=== PATIENT | female | born 1990 | race Caucasian/White ===

== ENCOUNTER → 2017-08-02 11:12 | Outpatient (CLI) | payer OTHER, SELFPAY ==
[2017-08-03 10:35] LABS: Progesterone Level 5.28 ng/mL (See Comment)
[2017-08-03 14:32] LABS: DHEA Sulfate 243.4 ug/dL (84.8-378.0)
== END ==
PROVIDERS: Family Provider Student in an Organized Health Care Education/Training Program; PCP Student in an Organized Health Care Education/Training Program; Visit Provider Student in an Organized Health Care Education/Training Program
DX: N92.6 Irregular menstruation, unspecified (principal)
CPT/HCPCS: 82627; 84144; 82626

== ENCOUNTER 2017-12-01 15:57 | Emergency (ER) | payer OTHER, SELFPAY ==
[2017-12-01 15:58] VITALS: BP 113/76; PULSE 67; PULSE 71; RESP 18; TEMP 36.1; O2SAT 97; BMI 34.4
== END 2017-12-01 16:32 ==
PROVIDERS: Family Provider Student in an Organized Health Care Education/Training Program; PCP Student in an Organized Health Care Education/Training Program
DX: R10.9 Unspecified abdominal pain (principal)

== ENCOUNTER → 2018-05-01 17:00 | Outpatient (CLI) | payer OTHER, SELFPAY ==
[2018-05-01 14:23] VITALS: BMI 34.4
[2018-05-05 14:47] LABS: HPV Reflexed? NOT INDICATED
== END ==
PROVIDERS: Family Provider Student in an Organized Health Care Education/Training Program; PCP Student in an Organized Health Care Education/Training Program; Referring Provider Nurse Practitioner Women's Health; Visit Provider Nurse Practitioner Women's Health
DX: Z12.4 Encounter for screening for malignant neoplasm of cervix (principal)
CPT/HCPCS: 87624; 88175; G0145

== ENCOUNTER → 2018-05-18 15:41 | Outpatient (CLI) | payer OTHER, SELFPAY ==
[2018-05-01 14:23] VITALS: BMI 34.4
[2018-05-18 17:24] LABS: Estradiol 41.1 pg/mL; Prolactin 7.6 ng/mL; Thyroid Stim Hormone (TSH) 1.83 uIU/mL (0.358-3.74)
== END ==
PROVIDERS: Family Provider Student in an Organized Health Care Education/Training Program; PCP Student in an Organized Health Care Education/Training Program; Referring Provider Nurse Practitioner Women's Health; Visit Provider Nurse Practitioner Women's Health
DX: N92.6 Irregular menstruation, unspecified (principal)
CPT/HCPCS: 36415; 82670; 84146; 84443

== ENCOUNTER → 2018-06-05 11:14 | Outpatient (CLI) | payer OTHER, SELFPAY ==
[2018-05-01 14:23] VITALS: BMI 34.4
[2018-06-05 12:44] LABS: Progesterone Level 3.23 ng/mL (See Comment)
== END ==
PROVIDERS: Family Provider Student in an Organized Health Care Education/Training Program; PCP Student in an Organized Health Care Education/Training Program; Referring Provider Nurse Practitioner Women's Health; Visit Provider Nurse Practitioner Women's Health
DX: N97.0 Female infertility associated with anovulation (principal)
CPT/HCPCS: 36415; 84144

== ENCOUNTER → 2018-09-08 07:21 | Outpatient (CLI) | payer OTHER, SELFPAY ==
[2018-05-01 14:23] VITALS: BMI 34.4
[2018-09-08 08:06] LABS: Glucose 75GTT - Fasting 98 mg/dL (70-99)
[2018-09-08 08:06] LABS: Glucose 98 mg/dL (74-106)
[2018-09-08 08:13] LABS: Insulin 54.9 mU/L (2.6-37.6)
[2018-09-08 09:06] LABS: Glucose 75GTT - 60 minutes 181 mg/dL (100-160)
[2018-09-08 09:09] LABS: Glucose 75GTT - 30 minutes 167 mg/dL (100-160)
[2018-09-08 10:20] LABS: Glucose 75GTT - 120 minutes 153 mg/dL (70-140)
== END ==
PROVIDERS: Family Provider Student in an Organized Health Care Education/Training Program; PCP Student in an Organized Health Care Education/Training Program; Referring Provider Obstetrics & Gynecology Reproductive Endocrinology; Visit Provider Obstetrics & Gynecology Reproductive Endocrinology
DX: E16.8 Other specified disorders of pancreatic internal secretion (principal)
CPT/HCPCS: 82947; 82951; 82952; 83525

== ENCOUNTER → 2019-07-17 | Outpatient (CLI) | payer OTHER, SELFPAY ==
[2019-07-17 09:13] VITALS: BMI 34.4
[2019-07-21 11:37] LABS: HPV Reflexed? NOT INDICATED
== END | disposition home or self-care (01) ==
LOC: LABSPEC 14:25
PROVIDERS: PCP Student in an Organized Health Care Education/Training Program; Referring Provider Nurse Practitioner Women's Health; Visit Provider Nurse Practitioner Women's Health
DX: Z12.4 Encounter for screening for malignant neoplasm of cervix (principal)
CPT/HCPCS: 88175; G0145

== ENCOUNTER → 2019-11-24 06:04 | Emergency (ER) ==
[2019-11-24 06:05] VITALS: BP 123/86; PULSE 89; RESP 16; TEMP 36.5; O2SAT 96; BMI 33.8
--- NOTE | 2019-11-24 06:20 | ED.DCSUM_ITS ---
History of Present Illness Chief Complaint: Nausea/Vomiting Informant: Patient - Abdominal Pain/Flank Pain Onset: Yesterday Context: Gradual Onset Timing: Waxes and wanes Quality: Aching, Cramping, Sharp Location: Diffuse - more lower abd Current Severity: Mild - pain Maximum Severity: Moderate - pain Worsened by: Nothing Relieved by: Nothing - Nausea/Vomiting/Emesis GI Symptom: Nausea, Vomiting Onset: Hours - 1-2 Quality: Nonbilious. Negative for: Blood streaks, Coffee ground, Hematemesis Severity: Severe - Diarrhea/Melena/Hematochezia GI Symptom: Negative for: Diarrhea, Melena, Hematochezia Associated Symptoms: Negative for: Dysuria, Frequency, Hematuria, Urgency LMP: 1 month - about 32 days ago; I'm due to start today, plus or minus 3 days Narrative: Healthy 29-year-old female states yesterday she felt like she was getting acid reflux type symptoms in her upper stomach and mid chest, and some nausea at times. This morning she started vomiting and having lower abdominal discomfort, and states she came to the ER because she is unable to stop vomiting at all. She denies any recent antibiotics for any reason, no history of C. difficile, no recent camping or ground water ingestion, she denies ingesting any suspicious foods or uncooked/undercooked meat, and denies any contact with anybody else that she knows of with similar symptoms. She denies any cough, congestion, shortness of breath, chest pain other than the reflux symptoms, no fevers or chills. - Past Medical History (1) PCOS (polycystic ovarian syndrome) Status: Chronic Past Medical History - Allergies and Home Meds Allergies/Adverse Reactions: Allergies No Known Allergies Allergy (Verified 11/24/19 06:10) Primary Care Physician: Heath Ontiveros DO [Primary Care Provider] - Lives: Spouse/ Significant Other Smoking Status: Never smoker Review of Systems General: Denies: Chills, Fever, Sweats Eyes: Denies: Visual changes - bilaterally, Diplopia ENT: Denies: Rhinorrhea, Sore throat Cardiovascular: Denies: Chest pain, Palpitations Respiratory: Denies: Dyspnea, Cough, Dyspnea on exertion Gastrointestinal: Reports: Abdominal pain, Nausea, Vomiting. Denies: Diarrhea, Melena, Hematochezia Genitourinary: Denies: Dysuria, Hematuria, Frequency Musculoskeletal: Denies: Myalgias, Neck pain, Back pain, Swelling, Extremity Pain Skin: Denies: Rash, Wounds Neurological: Denies: Headache, Weakness, Numbness Physical Exam Vital Signs/Narrative: Vital Signs Temp Pulse Resp BP Pulse Ox 11/24/19 06:05 97.7 F L 89 16 123/86 H 96 Inital Vital Signs reviewed: Yes General: Well nourished, Well developed, No Acute Distress - Well-appearing, conversive in full sentences, no vomiting Head: Normocephalic, Atraumatic Eyes: Perrl, EOMI ENT: Moist mucous membranes, No rhinorrhea Neck: Supple, Nontender Cardiovascular: Regular rate, Regular rhythm, No murmurs. Negative for: Tachycardia Respiratory: No distress, CTA bilaterally, Chest nontender Abdomen: Soft, Nondistended, Normal bowel sounds, No masses, Tender - Mild throughout lower abdomen, nonfocal, and epigastrium. Negative for: Guarding, Rebound tenderness Back: Nontender, Normal Inspection. Negative for: CVA tenderness Extremities: Nontender, No edema Skin: Normal color, No rash, No Trauma Neurological: Alert, Oriented x3, Cranial nerves II-XII grossly intact, Normal Strength, Normal Sensation, Normal Gait Psychological: Normal affect, Normal Mood Diagnostic/Tx/Re-eval Laboratory Results 11/24/19 11/24/19 11/24/19 06:15 06:15 07:03 WBC 10.1 RBC 4.74 Hgb 14.5 Hct 45.0 MCV 94.9 MCH 30.6 MCHC 32.2 RDW Std Deviation 45.1 H RDW Coeff of [place] 13.0 Plt Count 351 MPV 12.0 Immature Gran % (Auto) 0.300 Neut % (Auto) 69.2 Lymph % (Auto) 24.3 [place] % (Auto) 5.4 Eos % (Auto) 0.6 Baso % (Auto) 0.2 Absolute Neuts (auto) 7.0 Absolute Lymphs (auto) 2.44 Nucleated RBC % 0 Sodium 139 Potassium 3.4 L Chloride 106 Carbon Dioxide 27.0 Anion Gap 6 BUN 7 Creatinine 0.84 Estim Creat Clear Calc 100.58 Est GFR (MDRD) Af Amer 103 Est GFR (MDRD) Non-Af 85 BUN/Creatinine Ratio 8.3 L Glucose 94 Calcium 9.0 Total Bilirubin 0.60 AST 35 ALT 106 H Alkaline Phosphatase 91 Total Protein 7.9 Albumin 4.2 Globulin 3.7 Albumin/Globulin Ratio 1.1 Lipase 119 Urine Color Yellow Urine Clarity Clear Urine pH 6.0 Ur Specific [place] 1.015 Urine Protein 15 H Urine Glucose (UA) Normal Urine Ketones Negative Urine Occult Blood Negative Urine Nitrite Negative Urine Bilirubin Negative Urine Urobilinogen Normal Ur Leukocyte Esterase Negative Urine RBC 0 SEEN Urine WBC 0 SEEN Ur Squamous Epith Cells 0-5 SEEN Urine Bacteria 1+ Urine Mucus 0 SEEN Urine Test Negative - Medical Decision Making Labs were obtained and unremarkable, her potassium was 3.4 just barely low. was negative, urinalysis unremarkable, differential includes functional causes of gastritis and intestinal pain, viral infections less likely COVID-19, indigestion/acid reflux. Appendicitis also considered, I reexamined her after her initial treatment with IV fluids, Zofran, Bentyl, and a GI cocktail. She states the pain is improved, but she is still nauseated and having an occasional dry heave. On reexamination she has some mild tenderness in her lower abdomen but not the right lower quadrant. I think appendicitis is much less likely given this, and I do not think she needs an emergent CT at this time. We will give her some Reglan and if she is able to tolerate oral fluids we will send her home with a prescription for some, and instructions to follow- up with her doctor or return if worse. We discussed signs and symptoms of appendicitis, and she is comfortable with that plan. ED Disposition - Plan for ED Patient: Disposition: Home or Assisted Living Diagnosis: Acute gastritis without bleeding, Diffuse abdominal pain Instructions: ED Gastritis Prescriptions: Metoclopramide [Reglan] 10 mg PO Q6H PRN #12 tab PRN Reason: Nausea/Vomiting Prescription Printed Referrals: Heath Ontiveros DO [Primary Care Provider] - 1-2 Days if not improving (or return to the ER if worse and/or pain focusing in right lower abdomen)
[2019-11-24] MEDS: Ondansetron 4 MG/2 ML Vial IV (06:34)
[2019-11-24] MEDS: Dicyclomine 10 MG Capsule 20 MG PO (06:35)
[2019-11-24] MEDS: Mag Hydrox/Al Hydrox/Simeth 30 ML UDC PO (06:35)
[2019-11-24 06:45] LABS: Absolute Lymphocyte Count 2.44 X10^3/uL (0.83-4.51); Basophil# 0.02 X10^3/uL; Basophil% 0.2 % (0-1); Eosinophil# 0.06 X10^3/uL; Eosinophils% 0.6 % (0-5); Hemoglobin 14.5 g/dL (12.0-15.0); Lymphocyte # 2.44 X10^3/ul (4.0); Lymphocyte % 24.3 % (19-41); Mean Corp Hgb Conc 32.2 g/dL (32-36); Mean Corpuscular Hgb 30.6 pg (27.0-32.0); Mean Corpuscular Volume 94.9 fL (81-99); Monocyte# 0.54 X10^3/uL; Monocyte% 5.4 % (0-10); NRBC Flagged by Analyzer 0 % (0-5); Neutrophil # 6.97 X10^3/uL (2.7-7.7); Neutrophil % 69.2 % (47-70); Platelet Count 351 K/mm3 (150-450); RBC Distribution Width SD 45.1 fl (35.1-43.9); Red Blood Count 4.74 M/mm3 (4.2-5.4); White Blood Count 10.1 K/mm3 (4.4-11.0)
[2019-11-24 07:03] LABS: ALB/GLOB Ratio 1.1 RATIO (0.9-2.4); AST(SGOT) 35 U/L (15-37); Alanine Aminotransfer ALT/SGPT 106 U/L (13-56); Albumin, Serum 4.2 g/dL (3.2-5.0); Alkaline Phosphatase 91 U/L (45-117); Anion Gap 6 (5-15); BUN 7 mg/dL (7-18); BUN/Creat Ratio 8.3 RATIO (10-20); Chloride 106 mmol/L (98-107); Creatinine, Serum 0.84 mg/dL (0.55-1.02); EST Glomerular Filtration Rate 85 mL/min (>60); Est Glom Filt Rate - Afr Amer 103 mL/min (>60); Estimated Creatinine Clearance 100.58 ml/min; Globulin 3.7 g/dL (2.2-4.2); Glucose 94 mg/dL (74-106); Lipase 119 U/L (73-393); Potassium 3.4 mmol/L (3.5-5.1); Protein, Total 7.9 g/dL (6.4-8.2); Sodium Level 139 mmol/L (136-145)
[2019-11-24 07:10] LABS: Mucous, Urine 0 SEEN /hpf (<or=2+); Red Blood Cells-Urine 0 SEEN /hpf (0-5); White Blood Cells 0 SEEN /hpf (0-5)
[2019-11-24 07:12] LABS: Color, Urine Yellow (Yellow); Glucose, Dipstick Normal (Normal); Ketone-Dipstick Negative (Negative); Leukocyte Esterase-Dipstick Negative /ul (Negative); Nitrite-Dipstick Negative (Negative); Occult Blood-Urine Negative /ul (Negative); Protein-Dipstick 15 mg/dl (Negative); Specific Gravity, Urine 1.015 (1.002-1.030); Urine Bilirubin Dipstick Negative (Negative); Urine Clarity Clear (Clear); Urine Urobilinogen Normal (Normal)
[2019-11-24 07:19] LABS: Bacteria 1+ /hpf (None Seen); Internal QC Validated? YES +Cl - CLEAR BKGD; Pregnancy, Urine Negative Negative; Squamous Epithelial Cells - UA 0-5 SEEN /hpf (5-10)
[2019-11-24] MEDS: Metoclopramide 10 MG/2 ML Vial 5 MG IV (08:02)
== END | disposition home or self-care (01) ==
PROVIDERS: Emergency Provider Emergency Medicine; PCP Student in an Organized Health Care Education/Training Program
DX: K29.00 Acute gastritis without bleeding (principal); R10.9 Unspecified abdominal pain; E28.2 Polycystic ovarian syndrome
CPT/HCPCS: 80053; 81001; 81025; 83690; 85025; 96374; 96375; 99282; 99285; J7030; A4216; J2405

== ENCOUNTER 2019-11-27 00:11 | Emergency (ER) | payer OTHER, SELFPAY ==
[2019-11-24 06:05] VITALS: BMI 33.8
[2019-11-27 00:12] VITALS: BP 119/71; PULSE 92; RESP 16; TEMP 36.6; O2SAT 97; BMI 34.2
--- NOTE | 2019-11-27 01:11 | CT_ITS ---
STUDY: CT ABDOMEN AND PELVIS WITHOUT CONTRAST REASON FOR EXAM: Female, 29 years old. RIGHT FLANK PAIN WITH N/V RADIATION DOSAGE (If Supplied By Facility): CTDIvol = ( 15.21 ) mGy, DLP = ( 862.76 ) mGycm TECHNIQUE: Transaxial images were obtained from the dome of the diaphragm to the symphysis pubis without oral contrast, and without intravenous contrast. Sagittal and coronal images were reconstructed. Individualized dose optimization techniques were used for this CT. COMPARISON: None. FINDINGS: The visualized lung bases are unremarkable. The visualized portions of the heart are within normal limits. Normal liver. Normal gallbladder and extrahepatic biliary system. Normal spleen. Normal pancreas. Normal bilateral adrenal glands. Normal right kidney. There is a 7 mm nonobstructive left mid renal calculus. Otherwise, normal left kidney. Normal visualized stomach. Normal small intestine. Normal colon. The appendix is visualized posterior to the cecum on axial images 120-150 and it appears normal. Normal abdominal aorta. Normal inferior vena cava. Normal retroperitoneum. Normal urinary bladder. Normal abdominal wall. There is a small broad posterior disc protrusion L5-S1 level. Otherwise normal osseous structures. CT/Abdomen/Pelvis without Cont IMPRESSION: Nonobstructive left renal calculus. No demonstrated ureteral calculus or hydronephrosis. No evidence for acute pathology. No evidence for appendicitis or diverticulitis. No evidence for bowel obstruction or ileus. Electronically Signed: Guevara Marie MD at 1:53 EDT , Service support ,
[2019-11-27 01:19] LABS: Absolute Lymphocyte Count 2.72 X10^3/uL (0.83-4.51); Basophil# 0.04 X10^3/uL; Basophil% 0.3 % (0-1); Eosinophil# 0.06 X10^3/uL; Eosinophils% 0.4 % (0-5); Hematocrit 46.1 % (37-47); Lymphocyte # 2.72 X10^3/ul (4.0); Lymphocyte % 19.9 % (19-41); Mean Corp Hgb Conc 32.5 g/dL (32-36); Mean Corpuscular Hgb 30.5 pg (27.0-32.0); Mean Corpuscular Volume 93.9 fL (81-99); Mean Platelet Vol. 12.1 fl (6.2-12.0); Monocyte# 0.84 X10^3/uL; Monocyte% 6.1 % (0-10); NRBC Flagged by Analyzer 0 % (0-5); Neutrophil # 9.99 X10^3/uL (2.7-7.7); Platelet Count 324 K/mm3 (150-450); RBC Distribution Width CV 12.9 % (11.6-14.6); RBC Distribution Width SD 44.5 fl (35.1-43.9); Red Blood Count 4.91 M/mm3 (4.2-5.4); White Blood Count 13.7 K/mm3 (4.4-11.0)
--- NOTE | 2019-11-27 01:24 | ED.VIS.GEN ---
History of Present Illness Chief Complaint: Abd Pain Narrative: Patient presents with generalized abdominal pain, she was seen here a few days ago and had an unremarkable work-up she had a virtual visit but continues to have abdominal pain with some nausea and vomiting she denies she had a negative test and then she just darted her period today. She has no flank pain. She has no fevers or chills. Past Medical History - Allergies and Home Meds Allergies/Adverse Reactions: Allergies No Known Allergies Allergy (Verified 11/27/19 00:12) Primary Care Physician: Heath Ontiveros DO [Primary Care Provider] - Past Medical History: None Smoking Status: Never smoker Review of Systems General: Reports: - - She does not feel lightheaded. Denies: Fever ENT: Denies: Sore throat Cardiovascular: Denies: Chest pain Respiratory: Denies: Dyspnea, Cough, Sputum Gastrointestinal: Reports: Abdominal pain, Nausea, Vomiting. Denies: Diarrhea, Constipation Musculoskeletal: Denies: Myalgias, Arthralgias Skin: Denies: Rash Neurological: Denies: Headache, Weakness Endocrine: Denies: Polyuria Hematologic: Denies: Easy bruising Physical Exam Vital Signs/Narrative: Vital Signs Temp Pulse Resp BP Pulse Ox 11/27/19 00:12 97.8 F 92 16 119/71 97 Head: Normocephalic, Atraumatic Eyes: Perrl ENT: - - Her mucous membranes are moist. There is no signs of dehydration Cardiovascular: Regular rate, Regular rhythm Respiratory: No distress, CTA bilaterally Abdomen: Soft, - - Patient has mostly epigastric pain, however there is some bilateral lower abdominal pain. No specific right upper quadrant pain no specific pain at McBurney's. No guarding or rebound. Negative Medley's. Back: Nontender, Normal Inspection Extremities: Nontender, No edema Skin: Normal color Neurological: Normal Strength, Normal Sensation Psychological: Normal affect Diagnostic/Tx/Re-eval - Medical Decision Making Patient has an unremarkable work-up there are signs of dehydration, she was given IV fluids and improved. She does have evidence of a slight UTI I will treat her with antibiotics otherwise she is stable for discharge. ED Disposition - Plan for ED Patient: Disposition: Home or Assisted Living Diagnosis: Abdominal pain, UTI (urinary tract infection), Dehydration Instructions: ED Acute Pain UKO, ED CYSTITIS Female Adult, ED Dehydration Adult Prescriptions: Smz/Tmp Ds [Bactrim Ds] 1 tab PO BID #6 tab Transmission Status: Pending to [id number] Hydrocodone Bitart/Apap 5-325 [[place] 5MG-325MG] 1 tablet PO Q4H PRN PRN 2 Days #10 tablet PRN Reason: Pain Transmission Status: Received by [id number] Ondansetron [Zofran Odt] 4 mg PO Q8H PRN PRN #10 tab PRN Reason: Nausea Transmission Status: Pending to [id number] Referrals: Heath Ontiveros DO [Primary Care Provider] - 2 Days
[2019-11-27] MEDS: Morphine 4 MG/ML Syringe IV (01:25)
[2019-11-27] MEDS: Ondansetron 4 MG/2 ML Vial IV (01:26)
[2019-11-27 01:31] LABS: ALB/GLOB Ratio 1.1 RATIO (0.9-2.4); AST(SGOT) 38 U/L (15-37); Alanine Aminotransfer ALT/SGPT 79 U/L (13-56); Albumin, Serum 4.1 g/dL (3.2-5.0); Alkaline Phosphatase 84 U/L (45-117); Anion Gap 9 (5-15); BUN 8 mg/dL (7-18); BUN/Creat Ratio 9.6 RATIO (10-20); Calcium,Total 9.2 mg/dL (8.5-10.1); Chloride 109 mmol/L (98-107); Creatinine, Serum 0.83 mg/dL (0.55-1.02); EST Glomerular Filtration Rate 87 mL/min (>60); Est Glom Filt Rate - Afr Amer 105 mL/min (>60); Estimated Creatinine Clearance 98.13 ml/min; Globulin 3.8 g/dL (2.2-4.2); Glucose 84 mg/dL (74-106); Lipase 123 U/L (73-393); Protein, Total 7.9 g/dL (6.4-8.2); Sodium Level 140 mmol/L (136-145)
[2019-11-27 03:03] LABS: Mucous, Urine 0 SEEN /hpf (<or=2+)
[2019-11-27 03:04] LABS: Color, Urine Yellow (Yellow); Glucose, Dipstick Normal (Normal); Leukocyte Esterase-Dipstick 500 /ul (Negative); Nitrite-Dipstick Negative (Negative); Occult Blood-Urine 250 /ul (Negative); Protein-Dipstick 30 mg/dl (Negative); Urine Bilirubin Dipstick Negative (Negative); Urine Clarity Sl. Cloudy (Clear); Urine Urobilinogen Normal (Normal)
[2019-11-27 03:09] LABS: Ketone-Dipstick 150 mg/dl (Negative)
[2019-11-27 03:12] LABS: White Blood Cells 5-10 SEEN /hpf (0-5)
[2019-11-27 03:13] LABS: Red Blood Cells-Urine > 100 SEEN /hpf (0-5); Squamous Epithelial Cells - UA 0-5 SEEN /hpf (5-10)
[2019-11-27 03:14] LABS: Bacteria 1+ /hpf (None Seen)
[2019-11-27] MEDS: Smz/Tmp Ds Tablet 1 TABLET PO (03:33)
[2019-11-27 03:40] VITALS: BP 177/72; PULSE 64; RESP 14; O2SAT 99
== END 2019-11-27 03:41 | disposition home or self-care (01) ==
PROVIDERS: Emergency Provider Emergency Medicine; PCP Student in an Organized Health Care Education/Training Program
DX: R10.84 Generalized abdominal pain (principal); N39.0 Urinary tract infection, site not specified; E86.0 Dehydration
CPT/HCPCS: 74176; 80053; 81001; 83690; 85025; 96374; 96375; 99284; J7030; A4216; J2405

== ENCOUNTER 2019-12-01 12:14 | Emergency (ER) | payer OTHER, SELFPAY ==
[2019-12-01 12:14] VITALS: BP 134/93; PULSE 89; RESP 16; TEMP 36.4; O2SAT 96; BMI 33.5
--- NOTE | 2019-12-01 12:28 | ED.DCSUM_ITS ---
History of Present Illness Chief Complaint: Nausea/Vomiting/Diarrhea Informant: Patient Onset: Days, Weeks Context: Gradual Onset Timing: Intermittent Current Severity: Mild Maximum Severity: Moderate Narrative: Patient is a 29-year-old female who presents to the emergency department with nausea and vomiting. The patient has been in the emergency department 3 times within the past week. She is initially, she had work-up including CT of abdomen pelvis. It was unremarkable. She was started on Pepcid and Reglan. She returned 2 days later with persistent nausea and vomiting. At that point, she had trace UTI. She was placed on Bactrim. She states she has finished it. Her primary care started her on Carafate. She states that she took it yesterday and had 5 bouts of emesis. She states today, she is had no vomiting, but that her mouth feels dry. She does get some cramping abdominal pain, but it has significantly improved. She does not think she is had fever. She denies any sick contacts. She denies any urinary symptoms. Prior similar symptoms: Yes Recent Illness/Hospitalization: No Past Medical History - Allergies and Home Meds Allergies/Adverse Reactions: Allergies No Known Allergies Allergy (Verified 12/01/19 12:16) Primary Care Physician: Heath Ontiveros DO [Primary Care Provider] - Prior records reviewed: Yes Past Medical History: None Surgical History: no surgical history Smoking Status: Never smoker Review of Systems General: Denies: Chills, Fever, Sweats Eyes: Denies: Visual changes - bilaterally, Diplopia ENT: Denies: Rhinorrhea, Sore throat Cardiovascular: Denies: Chest pain, Palpitations Respiratory: Denies: Dyspnea, Cough, Dyspnea on exertion Gastrointestinal: Reports: Abdominal pain, Nausea, Vomiting. Denies: Diarrhea, Melena, Hematochezia Genitourinary: Denies: Dysuria, Hematuria, Frequency Musculoskeletal: Denies: Back pain, Extremity Pain Skin: Denies: Rash, Wounds Neurological: Denies: Headache, Weakness, Numbness Physical Exam Vital Signs/Narrative: Vital Signs Temp Pulse Resp BP Pulse Ox 12/01/19 12:14 97.5 F L 89 16 134/93 H 96 Inital Vital Signs reviewed: Yes General: Well nourished, Well developed, No Acute Distress Head: Normocephalic, Atraumatic Eyes: Perrl, EOMI ENT: Moist mucous membranes, No rhinorrhea Neck: Supple, Nontender Cardiovascular: Regular rate, Regular rhythm, No murmurs Respiratory: No distress, CTA bilaterally, Chest nontender Abdomen: Soft, Nontender, Nondistended, Normal bowel sounds Back: Nontender, Normal Inspection Extremities: Nontender, No edema Skin: Normal color, No rash Neurological: Alert, Oriented x3, Cranial nerves II-XII grossly intact, Normal Strength, Normal Sensation Psychological: Normal affect, Normal Mood Diagnostic/Tx/Re-eval Abnormal Lab Results 12/01/19 12/01/19 12/01/19 12:45 12:45 12:45 WBC 8.0 RBC 5.17 Hgb 15.7 H Hct 46.9 MCV 90.7 MCH 30.4 MCHC 33.5 RDW Std Deviation 42.2 RDW Coeff of [place] 12.7 Plt Count 369 MPV 11.7 Immature Gran % (Auto) 0.300 Neut % (Auto) 65.3 Lymph % (Auto) 26.3 [place] % (Auto) 6.7 Eos % (Auto) 1.0 Baso % (Auto) 0.4 Absolute Neuts (auto) 5.2 Absolute Lymphs (auto) 2.09 Nucleated RBC % 0 Sodium 136 Potassium 3.7 Chloride 104 Carbon Dioxide 25.0 Anion Gap 7 BUN 9 Creatinine 0.98 Estim Creat Clear Calc 83.11 Est GFR (MDRD) Af Amer 86 Est GFR (MDRD) Non-Af 71 BUN/Creatinine Ratio 9.2 L Glucose 87 Calcium 9.2 Total Bilirubin 0.70 AST 46 H ALT 135 H Alkaline Phosphatase 95 Total Protein 8.0 Albumin 4.3 Globulin 3.7 Albumin/Globulin Ratio 1.2 Urine Color Yellow Urine Clarity Sl. Cloudy Urine pH 6.5 Ur Specific [place] 1.010 Urine Protein Negative Urine Glucose (UA) Normal Urine Ketones 15 H Urine Occult Blood Negative Urine Nitrite Negative Urine Bilirubin Negative Urine Urobilinogen Normal Ur Leukocyte Esterase Negative Urine RBC 0 SEEN Urine WBC 0 SEEN Ur Squamous Epith Cells 0-5 SEEN Urine Bacteria 1+ Urine Mucus 0 SEEN Urine Test Negative - Medical Decision Making Patient presents with nausea and vomiting that is slowly been improving. She states that it did get worse yesterday after she took her first dose of Carafate. She has not taken any today and her vomiting had resolved. She was feeling mildly nauseated. Metabolic work-up was pursued as the patient has had recurrent emesis and I wanted to rule out rather significant dehydration or electrolyte abnormalities. Her abdomen is soft and nontender. She is afebrile. Screening labs do show improvement of her white blood cell count. There is also almost total resolution of her urine ketones. There is no evidence of urine infection. Her bicarb is normal. On reevaluation, she is resting comfortably. At this point, I do feel the patient is safe for outpatient therapy. She does have minimal elevation of the liver functions, but again has no abdominal pain. This may just be underlying viral illness which was causing her symptoms and she is recovering. I do not suspect a dangerous process. I do feel that she is safe to continue her outpatient follow-up. Impression 1. Nausea vomiting ED Disposition - Plan for ED Patient: Instructions: ED Viral Gastroenteritis Referrals: Heath Ontiveros DO [Primary Care Provider] -
[2019-12-01] MEDS: Lactated Ringers 1,000 ML 999 ML IV (12:51)
[2019-12-01] MEDS: Ondansetron 4 MG/2 ML Vial IV (12:51)
[2019-12-01 12:58] LABS: Absolute Lymphocyte Count 2.09 X10^3/uL (0.83-4.51); Absolute Neutrophil Count 5.2 X10^3/uL (2.0-7.7); Basophil# 0.03 X10^3/uL; Basophil% 0.4 % (0-1); Eosinophil# 0.08 X10^3/uL; Hematocrit 46.9 % (37-47); Hemoglobin 15.7 g/dL (12.0-15.0); Lymphocyte # 2.09 X10^3/ul (4.0); Lymphocyte % 26.3 % (19-41); Mean Corp Hgb Conc 33.5 g/dL (32-36); Mean Corpuscular Hgb 30.4 pg (27.0-32.0); Mean Corpuscular Volume 90.7 fL (81-99); Mean Platelet Vol. 11.7 fl (6.2-12.0); Monocyte# 0.53 X10^3/uL; Monocyte% 6.7 % (0-10); NRBC Flagged by Analyzer 0 % (0-5); Neutrophil # 5.21 X10^3/uL (2.7-7.7); Neutrophil % 65.3 % (47-70); Platelet Count 369 K/mm3 (150-450); RBC Distribution Width CV 12.7 % (11.6-14.6); RBC Distribution Width SD 42.2 fl (35.1-43.9); Red Blood Count 5.17 M/mm3 (4.2-5.4)
[2019-12-01 13:06] LABS: Mucous, Urine 0 SEEN /hpf (<or=2+); Red Blood Cells-Urine 0 SEEN /hpf (0-5); White Blood Cells 0 SEEN /hpf (0-5)
[2019-12-01 13:11] LABS: Color, Urine Yellow (Yellow); Glucose, Dipstick Normal (Normal); Ketone-Dipstick 15 mg/dl (Negative); Leukocyte Esterase-Dipstick Negative /ul (Negative); Nitrite-Dipstick Negative (Negative); Occult Blood-Urine Negative /ul (Negative); Protein-Dipstick Negative (Negative); Urine Bilirubin Dipstick Negative (Negative); Urine Clarity Sl. Cloudy (Clear); Urine Urobilinogen Normal (Normal); Urine pH 6.5 (5.0 - 8.0)
[2019-12-01 13:15] LABS: ALB/GLOB Ratio 1.2 RATIO (0.9-2.4); AST(SGOT) 46 U/L (15-37); Alanine Aminotransfer ALT/SGPT 135 U/L (13-56); Albumin, Serum 4.3 g/dL (3.2-5.0); Alkaline Phosphatase 95 U/L (45-117); Anion Gap 7 (5-15); BUN 9 mg/dL (7-18); BUN/Creat Ratio 9.2 RATIO (10-20); Calcium,Total 9.2 mg/dL (8.5-10.1); Chloride 104 mmol/L (98-107); Creatinine, Serum 0.98 mg/dL (0.55-1.02); EST Glomerular Filtration Rate 71 mL/min (>60); Est Glom Filt Rate - Afr Amer 86 mL/min (>60); Estimated Creatinine Clearance 83.11 ml/min; Globulin 3.7 g/dL (2.2-4.2); Glucose 87 mg/dL (74-106); Potassium 3.7 mmol/L (3.5-5.1); Sodium Level 136 mmol/L (136-145)
[2019-12-01 13:17] LABS: Bacteria 1+ /hpf (None Seen); Squamous Epithelial Cells - UA 0-5 SEEN /hpf (5-10)
[2019-12-01 13:18] LABS: Internal QC Validated? YES +Cl - CLEAR BKGD; Pregnancy, Urine Negative Negative
== END 2019-12-01 14:07 | disposition home or self-care (01) ==
LOC: ED 13:02
PROVIDERS: Emergency Provider Emergency Medicine; PCP Student in an Organized Health Care Education/Training Program
DX: R11.2 Nausea with vomiting, unspecified (principal); R10.9 Unspecified abdominal pain
CPT/HCPCS: 80053; 81001; 81025; 85025; 96361; 96374; 99282; J7120; A4216; J2405

== ENCOUNTER → 2020-05-20 15:50 | Outpatient (CLI) | payer OTHER, SELFPAY ==
[2020-05-20 08:31] VITALS: BMI 32.4
[2020-05-20 20:02] LABS: Chlamydia Trachomatis by PCR Negative (Negative); Neisserai gonorrhoeae by PCR Negative (Negative); Probe Check PASS; Sample Adequacy Control PASS; Specimen Processing Control PASS
[2020-05-21 08:25] LABS: HIV - WCH Non-Reactive (Nonreactive); Syphilis Antibodies Non-reactive
[2020-05-22 16:09] LABS: HCV Quant. RNA PCR HCV Not Detected IU/mL (.)
[2020-05-23 13:04] LABS: HSV 1 IgG < 0.91 index (0.00-0.90); HSV 2 IgG < 0.91 index (0.00-0.90)
== END ==
PROVIDERS: PCP Student in an Organized Health Care Education/Training Program; Referring Provider Nurse Practitioner Women's Health; Visit Provider Nurse Practitioner Women's Health
DX: Z11.3 Encounter for screening for infections with a predominantly sexual mode of transmission (principal)
CPT/HCPCS: 36415; 86695; 86696; 86703; 86780; 87491; 87522; 87591

== ENCOUNTER → 2021-07-28 | Outpatient (CLI) | payer OTHER, SELFPAY ==
[2021-07-29 22:07] LABS: Chlamydia By Nucleic Acid AMP Negative (Negative)
[2021-07-30 12:43] LABS: Gonococcus By Nucleic Acid AMP Negative (Negative)
[2021-07-31 16:09] LABS: HPV APTIMA, High Risk Negative (Negative)
== END | disposition home or self-care (01) ==
PROVIDERS: PCP Student in an Organized Health Care Education/Training Program; Visit Provider Nurse Practitioner Women's Health
DX: Z12.4 Encounter for screening for malignant neoplasm of cervix (principal); Z11.3 Encounter for screening for infections with a predominantly sexual mode of transmission
CPT/HCPCS: 87491; 87591; 87624; 88175; G0145

== ENCOUNTER → 2021-10-09 | Outpatient (CLI) | payer OTHER, SELFPAY ==
--- NOTE | 2021-10-09 13:06 | RAD_ITS ---
EXAM: XR RIGHT FOOT COMPLETE, 3 OR MORE VIEWS CLINICAL INDICATION: PAIN TECHNIQUE: Frontal, lateral and oblique views of the right foot. This report was created using [facility] [facility] report generation technology. COMPARISON: None. FINDINGS: BONES/JOINTS: No acute abnormality. SOFT TISSUES: Normal. No soft tissue swelling or gas. No radiopaque foreign body. RAD/Foot min 3 Views IMPRESSION: Intact right foot. Electronically Signed: Kenny Lewis MD at 16:59 EDT ,
--- NOTE | 2021-10-09 13:06 | RAD_ITS ---
EXAM: XR LEFT FOOT COMPLETE, 3 OR MORE VIEWS CLINICAL INDICATION: PAIN TECHNIQUE: Frontal, lateral and oblique views of the left foot. This report was created using [employer] report generation technology. COMPARISON: None. FINDINGS: SOFT TISSUES: Normal. No soft tissue swelling or gas. No radiopaque foreign body. RAD/Foot min 3 Views IMPRESSION: Intact left foot. Electronically Signed: Kenny Lewis MD at 16:59 EDT ,
== END | disposition home or self-care (01) ==
LOC: MTRAD 13:03
PROVIDERS: PCP Student in an Organized Health Care Education/Training Program
DX: M79.672 Pain in left foot (principal); M79.671 Pain in right foot; M25.571 Pain in right ankle and joints of right foot; M25.572 Pain in left ankle and joints of left foot; M79.89 Other specified soft tissue disorders
CPT/HCPCS: 73630

== ENCOUNTER 2023-12-23 09:17 | Emergency (ER) | payer OTHER, SELFPAY ==
[2023-12-23 09:18] VITALS: BP 203/163; PULSE 76; RESP 15; TEMP 36.4; O2SAT 98; BMI 37.0
[2023-12-23 09:21] VITALS: BP 203/163; PULSE 82; RESP 16; TEMP 36.4; O2SAT 98
[2023-12-23 09:38] VITALS: BP 114/79
[2023-12-23 09:51] LABS: Red Blood Cells-Urine 0 SEEN /hpf (0-5)
[2023-12-23] MEDS: Metoclopramide 10 MG/2 ML Vial IV (09:56)
[2023-12-23 10:01] LABS: Color, Urine Yellow (Yellow); Glucose, Dipstick Normal (Normal); Ketone-Dipstick 15 mg/dl (Negative); Leukocyte Esterase-Dipstick 25 /ul (Negative); Nitrite-Dipstick Negative (Negative); Occult Blood-Urine 10 /ul (Negative); Protein-Dipstick Negative (Negative); Urine Bilirubin Dipstick Negative (Negative); Urine Clarity Clear (Clear); Urine Urobilinogen 1 mg/dl (Normal)
[2023-12-23 10:21] VITALS: BP 108/95; PULSE 72; RESP 16; TEMP 36.8; O2SAT 97
[2023-12-23 10:26] LABS: Bacteria 3+ /hpf (None Seen); Mucous, Urine 2+ /hpf (<or=2+); Squamous Epithelial Cells - UA 25-50 SEEN /hpf (5-10); White Blood Cells 25-50 SEEN /hpf (0-5)
[2023-12-23 10:33] LABS: Absolute Lymphocyte Count 1.98 X10^3/uL (0.83-4.51); Basophil# 0.03 X10^3/uL; Basophil% 0.4 % (0-1); Eosinophil# 0.05 X10^3/uL; Eosinophils% 0.6 % (0-5); Hematocrit 44.4 % (37-47); Hemoglobin 14.7 g/dL (12.0-15.0); Lymphocyte # 1.98 X10^3/ul (0.83-4.51); Lymphocyte % 23.5 % (19-41); Mean Corp Hgb Conc 33.1 g/dL (32-36); Mean Corpuscular Hgb 30.1 pg (27.0-32.0); Mean Corpuscular Volume 90.8 fL (81-99); Mean Platelet Vol. 11.5 fl (6.2-12.0); Monocyte# 0.36 X10^3/uL; Monocyte% 4.3 % (0-10); NRBC Flagged by Analyzer 0 % (0-5); Neutrophil # 5.97 X10^3/uL (2.7-7.7); Platelet Count 347 K/mm3 (150-450); RBC Distribution Width SD 42.3 fl (35.1-43.9); Red Blood Count 4.89 M/mm3 (4.2-5.4); White Blood Count 8.4 K/mm3 (4.4-11.0)
[2023-12-23 10:47] LABS: ALB/GLOB Ratio 1.2 RATIO (0.9-2.4); AST(SGOT) 76 U/L (15-37); Alanine Aminotransfer ALT/SGPT 140 U/L (13-56); Albumin, Serum 4.1 g/dL (3.2-5.0); Alkaline Phosphatase 112 U/L (45-117); Anion Gap 5 (5-15); BUN 9 mg/dL (7-18); BUN/Creat Ratio 10.6 RATIO (10-20); Calcium,Total 9.4 mg/dL (8.5-10.1); Chloride 107 mmol/L (98-107); Creatinine, Serum 0.85 mg/dL (0.55-1.02); EST Glomerular Filtration Rate 82 mL/min (>60); Est Glom Filt Rate - Afr Amer 99 mL/min (>60); Estimated Creatinine Clearance 119.94 ml/min; Globulin 3.4 g/dL (2.2-4.2); Glucose 101 mg/dL (74-106); Lipase 42 U/L (13-75); Potassium 3.8 mmol/L (3.5-5.1); Protein, Total 7.5 g/dL (6.4-8.2); Sodium Level 139 mmol/L (136-145)
[2023-12-23 10:59] LABS: Internal QC Validated? YES +Cl - CLEAR BKGD; Pregnancy, Urine Negative Negative
[2023-12-23 11:18] VITALS: BP 125/86; PULSE 67; RESP 18; TEMP 36.8; O2SAT 99
== END 2023-12-23 11:36 | disposition home or self-care (01) ==
PROVIDERS: Emergency Provider Surgery; PCP Student in an Organized Health Care Education/Training Program; Visit Provider Surgery
DX: R11.2 Nausea with vomiting, unspecified (principal); K21.9 Gastro-esophageal reflux disease without esophagitis
CPT/HCPCS: 80053; 81001; 81025; 83690; 85025; 87086; 87088; 96374; 99282; A4216

== ENCOUNTER 2024-01-14 09:04 | Emergency (ER) | payer OTHER, SELFPAY ==
[2024-01-14 09:05] VITALS: BP 134/92; PULSE 76; RESP 18; TEMP 36.6; O2SAT 98; BMI 35.4
--- NOTE | 2024-01-14 09:31 | EX.ED.DYSGE1 ---
HPI History of Present Illness Chief Complaint: General Illness Informant: patient Narrative Narrative: 33-year-old female presenting to the emergency room with a chief complaint of COVID and vomiting. Patient states last she began to have sinus infection was seen by a dr who was diagnosed with sinusitis and ear infection started on an antibiotic that begins with the letter A. She states that they tested her for COVID flu and influenza and this came back positive for COVID. She states that she has been feeling like she was getting better until yesterday when she developed nausea and vomiting. She states she is now only been dry heaving. She feels lightheaded. She does note some slight amount of diarrhea. Patient states that she was using some Zofran she had has a leftover prescription from when she had a stomach illness a few weeks ago but it was not helping. [facility] Medical History ASCUS of cervix with negative high risk HPV PCOS (polycystic ovarian syndrome) Ovarian cyst Home Medications ?Medication ?Instructions ?Recorded ?Last Taken ?Type cholecalciferol (vitamin D3) 25 2,000 unit PO DAILY 04/09/15 Unknown History mcg (1,000 unit) tablet fluticasone propionate 50 2 spray intranasal DAILY 07/17/19 Unknown History mcg/actuation nasal spray,suspension (Flonase Allergy Relief) dicyclomine 10 mg capsule 10 mg PO BID 05/20/20 Unknown History magnesium citrate 100 mg capsule 100 mg PO DAILY 05/20/20 Unknown History omeprazole 20 mg capsule,delayed 20 mg PO BID 05/20/20 Unknown History release sertraline 50 mg tablet (Zoloft) 50 mg PO DAILY 05/20/20 Unknown History levocetirizine 5 mg tablet (Xyzal) 5 mg PO DAILY 07/28/21 Unknown History montelukast 10 mg tablet 10 mg PO DAILY 07/28/21 Unknown History (Singulair) rosuvastatin 10 mg tablet 10 mg PO DAILY 08/09/22 Unknown History vitamin#30 30 mg iron-10 cap PO 08/15/23 Unknown History mg iron-folic acid 1 mg-omg3 capsule metoclopramide HCl 5 mg tablet 5 mg PO Q8H PRN PRN nausea and 12/23/23 Unknown Rx (Reglan) vomiting 3 days #9 tabs Allergy/AdvReac Type Severity Reaction Status Date / Time sucralfate (From Carafate) Allergy Intermediate Nausea/Vom/ Verified 01/14/24 09:05 Diarrhea Family History Father Myocardial infarction Mother Multiple sclerosis Grandmother Diabetes Surgical History S/P pilonidal cyst excision [place] teeth extracted Social History current occupational status: employed 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 Jamin medina ventrek ROS ROS ED Constitutional Constitutional ED: Denies chills or weight loss Eyes Eyes: Denies change in vision or diplopia ENT ENT ED: Reports ear pain and rhinorrhea; Denies sore throat Cardiovascular Cardiovascular: Denies chest pain, orthopnea, palpitations or racing heartbeat Respiratory/Chest Respiratory/Chest: Reports cough; Denies dyspnea or orthopnea Gastrointestinal Gastrointestinal: Reports diarrhea, nausea and vomiting; Denies abdominal pain Genitourinary Genitourinary ED: Denies dysuria, hematuria or urinary frequency Musculoskeletal Musculoskeletal: Denies arthralgias or myalgias Integumentary Denies abscess or rash Neurologic Neurologic: Denies headache(s) or weakness Psychiatric Psychiatric: Denies anxiety, depression, suicidal ideation or suicidal thoughts Endocrine Endocrinology: Denies polydipsia, polyphagia or polyuria Allergic/Immunologic Allergic/Immunologic ED: Denies mouth swelling, tongue swelling or urticaria EXAM Physical Exam Const Vital Signs: 01/14/24 09:05 01/14/24 09:20 Temperature 97.8 F Temperature Source Oral Pulse Rate 76 Respiratory Rate 18 Respiratory Pattern Normal Blood Pressure 134/92 H Blood Pressure Mean 106 Pulse Ox 98 Positive well nourished and well developed General Appearance ED: well developed and NAD HEENT Reports normocephalic, head/scalp atraumatic and moist mucous membranes Eyes PERRL and EOMs intact bilaterally Neck no lymphadenopathy, supple and no JVD Resp normal respiratory effort and clear to auscultation bilaterally Cardio regular rate, regular rhythm and no murmurs GI normal to inspection, nondistended, normoactive bowel sounds and non-tender Palpation: soft Back/Spine no CVA tenderness and normal ROM Extremity normal to inspection General Extremety ED: Negative for edema General Extremity: Negative for edema Neuro oriented x3 and CN's II-XII intact bilaterally Sensorium / Orientation: alert Motor Exam: strength 5/5 throughout Psych mental status grossly normal Mood & Affect: Negative for depressed or tearful Skin no rashes or lesions noted and no wounds MDM MDM MDM Narrative Medical decision making narrative: Differential diagnosis includes but not limited to dehydration electrolyte abnormality viral syndrome Because of the amount of vomiting the patient is describing IV was established she received nausea medication as well as IV fluids. BMP was taken to assess for electrolyte abnormalities. BMP was essentially normal. She was given p.o. water. I can write for some Phenergan for home. I believe it is all to be still related to her COVID infection. History & Record Review Discussion w/independent historian: Patient Lab Data Attestation: I reviewed the patient's lab results. Labs: Laboratory Results - last 24 hr 01/14/24 09:37 Sodium 140 Potassium 3.6 Chloride 108 H Carbon Dioxide 28.0 Anion Gap 5 BUN 8 Creatinine 0.75 Estim Creat Clear Calc 133.59 Est GFR (MDRD) Af Amer 115 Est GFR (MDRD) Non-Af 95 BUN/Creatinine Ratio 10.7 Glucose 105 Calcium 9.0 Discharge Plan Triage Chief Complaint: General Illness ED Provider: Fransisco Gaspar Dx/Rx/DC Orders Clinical Impression: COVID-19, Vomiting, Acute dehydration Instructions: ED Dehydration (Adult), ED Vomiting (Adult) Prescriptions: No Action fluticasone propionate [Flonase Allergy Relief] 50 mcg/actuation spray,suspension 2 spray INTRANASAL DAILY Rx Instructions: administer into each nostril omeprazole 20 mg capsule,delayed release(DR/EC) 20 mg PO BID sertraline [Zoloft] 50 mg tablet 50 mg PO DAILY dicyclomine 10 mg capsule 10 mg PO BID magnesium citrate 100 mg capsule 100 mg PO DAILY levocetirizine [Xyzal] 5 mg tablet 5 mg PO DAILY montelukast [Singulair] 10 mg tablet 10 mg PO DAILY rosuvastatin 10 mg tablet 10 mg PO DAILY PNV #[id number] 30 mg iron-10 mg iron-1 mg capsule PO cholecalciferol (vitamin D3) 1,000 UNIT tablet 2,000 unit PO DAILY metoclopramide HCl [Reglan] 5 mg tablet 5 mg PO Q8H PRN PRN (Reason: nausea and vomiting) 3 Days Qty: 9 0RF Primary Care Provider: Heath Ontiveros Referrals: Heath Ontiveros, [Primary Care Provider] - Print Language: Romanian
[2024-01-14] MEDS: Ondansetron 4 MG/2 ML Vial IV (09:36)
[2024-01-14] MEDS: 0.9% Normal Saline (1000mL) 1,000 ML 1000 ML IV (09:36)
[2024-01-14 09:56] LABS: Anion Gap 5 (5-15); BUN 8 mg/dL (7-18); BUN/Creat Ratio 10.7 RATIO (10-20); Chloride 108 mmol/L (98-107); Creatinine, Serum 0.75 mg/dL (0.55-1.02); EST Glomerular Filtration Rate 95 mL/min (>60); Est Glom Filt Rate - Afr Amer 115 mL/min (>60); Estimated Creatinine Clearance 133.59 ml/min; Glucose 105 mg/dL (74-106); Potassium 3.6 mmol/L (3.5-5.1); Sodium Level 140 mmol/L (136-145)
[2024-01-14 10:32] VITALS: BP 130/92; PULSE 78; RESP 19; TEMP 36.8; O2SAT 97
[2024-01-14 10:39] VITALS: PULSE 61; RESP 18; O2SAT 99
== END 2024-01-14 10:40 | disposition home or self-care (01) ==
PROVIDERS: Emergency Provider Emergency Medicine; PCP Student in an Organized Health Care Education/Training Program; Visit Provider Emergency Medicine
DX: U07.1 COVID-19 (principal); E86.0 Dehydration; R11.2 Nausea with vomiting, unspecified
CPT/HCPCS: 80048; 96361; 96374; 99282; A4216; J2405

== ENCOUNTER 2024-01-16 12:28 | Emergency (ER) | payer OTHER, SELFPAY ==
[2024-01-16 12:29] VITALS: BP 131/101; PULSE 102; RESP 18; TEMP 36.6; O2SAT 98; BMI 35.0
[2024-01-16 12:32] VITALS: BP 130/98; PULSE 78; RESP 16; TEMP 36.4; O2SAT 98
[2024-01-16 12:55] LABS: Mucous, Urine 0 SEEN /hpf (<or=2+)
[2024-01-16 12:59] LABS: Absolute Lymphocyte Count 1.87 X10^3/uL (0.83-4.51); Absolute Neutrophil Count 6.8 X10^3/uL (2.0-7.7); Basophil# 0.02 X10^3/uL; Basophil% 0.2 % (0-1); Eosinophil# 0.03 X10^3/uL; Eosinophils% 0.3 % (0-5); Hematocrit 44.3 % (37-47); Hemoglobin 14.6 g/dL (12.0-15.0); Lymphocyte # 1.87 X10^3/ul (0.83-4.51); Lymphocyte % 20.6 % (19-41); Mean Corpuscular Volume 91.2 fL (81-99); Mean Platelet Vol. 11.6 fl (6.2-12.0); Monocyte% 3.3 % (0-10); NRBC Flagged by Analyzer 0 % (0-5); Neutrophil # 6.83 X10^3/uL (2.7-7.7); Neutrophil % 75.4 % (47-70); Platelet Count 373 K/mm3 (150-450); RBC Distribution Width CV 13.2 % (11.6-14.6); RBC Distribution Width SD 43.7 fl (35.1-43.9); Red Blood Count 4.86 M/mm3 (4.2-5.4); White Blood Count 9.1 K/mm3 (4.4-11.0)
[2024-01-16 13:01] LABS: Color, Urine Yellow (Yellow); Glucose, Dipstick Normal (Normal); Leukocyte Esterase-Dipstick 25 /ul (Negative); Nitrite-Dipstick Negative (Negative); Occult Blood-Urine 250 /ul (Negative); Protein-Dipstick 30 mg/dl (Negative); Urine Bilirubin Dipstick Negative (Negative); Urine Clarity Sl. Cloudy (Clear); Urine Urobilinogen 4 mg/dl (Normal)
[2024-01-16 13:02] LABS: Ketone-Dipstick 150 mg/dl (Negative)
[2024-01-16 13:06] LABS: Red Blood Cells-Urine > 100 SEEN /hpf (0-5); Squamous Epithelial Cells - UA 10-25 SEEN /hpf (5-10)
[2024-01-16 13:07] LABS: Bacteria 2+ /hpf (None Seen); White Blood Cells 10-25 SEEN /hpf (0-5)
[2024-01-16 13:13] LABS: Internal QC Validated? YES +Cl - CLEAR BKGD; Pregnancy, Serum, hCG Quali. NEGATIVE Negative
[2024-01-16 13:21] LABS: ALB/GLOB Ratio 1.1 RATIO (0.9-2.4); AST(SGOT) 83 U/L (15-37); Alanine Aminotransfer ALT/SGPT 201 U/L (13-56); Albumin, Serum 3.9 g/dL (3.2-5.0); Alkaline Phosphatase 148 U/L (45-117); Anion Gap 8 (5-15); BUN 6 mg/dL (7-18); BUN/Creat Ratio 8.7 RATIO (10-20); Calcium,Total 9.3 mg/dL (8.5-10.1); Chloride 109 mmol/L (98-107); Creatinine, Serum 0.69 mg/dL (0.55-1.02); EST Glomerular Filtration Rate 105 mL/min (>60); Est Glom Filt Rate - Afr Amer 127 mL/min (>60); Globulin 3.7 g/dL (2.2-4.2); Glucose 94 mg/dL (74-106); Potassium 3.6 mmol/L (3.5-5.1); Protein, Total 7.6 g/dL (6.4-8.2); Sodium Level 141 mmol/L (136-145)
[2024-01-16] MEDS: 0.9% Normal Saline (1000mL) 1,000 ML 999 ML IV (13:53)
[2024-01-16] MEDS: Famotidine 200 MG/20 ML MDV 20 MG in 0.9% Normal Saline (Pres. free 8 ML 300 MG IV (13:53)
[2024-01-16] MEDS: Ondansetron 4 MG/2 ML Vial IV (13:53)
[2024-01-16 14:01] LABS: Lipase 41 U/L (13-75)
--- NOTE | 2024-01-16 14:11 | US_ITS ---
STUDY: ABDOMINAL ULTRASOUND - RIGHT UPPER QUADRANT REASON FOR VISIT: Female, 33 years old transaminitis, abd pain TECHNIQUE: Ultrasound evaluation of the right upper quadrant was performed with real-time and static ayala-scale imaging. TECHNICAL QUALITY: Adequate. COMPARISON: None. FINDINGS: Liver: The liver measures 17.5 cm. There is increased echogenicity consistent with fatty infiltration. The bile ducts are within normal limits. There is hepatic color flow. The direction of portal flow is hepatopetal. There is no demonstrated mass lesion. Gallbladder: Normal distended gallbladder. The gallbladder wall measures 1.3 mm. There is a negative sonographic Medley''s sign. There is no pericholecystic fluid. There are no gallstones. Common Bile Duct (C.B.D.): The common bile duct measures 2.6 mm. Pancreas: Normal size of the head, body and tail of the pancreas. There is normal echogenicity of the pancreas. There is no demonstrated pancreatic mass or cyst. Right Kidney: Normal size of the right kidney. The right kidney measures 10.5 cm x 4.9 cm x 4.9 cm. Normal renal cortex. The right cortex measures 1.2 cm. There is no demonstrated renal mass or cyst. There is no right hydronephrosis. US/Gallbladder IMPRESSION: Mild hepatomegaly. Fatty infiltration of the liver. Electronically Signed: Myron Gaona MD at 14:52 EST ,
--- NOTE | 2024-01-16 14:40 | EX.ED.DYSGE1 ---
HPI History of Present Illness Chief Complaint: Abd Pain Informant: patient and spouse/S.O. Narrative Narrative: Here with significant other abdominal pain nausea and vomiting. Diagnosed with COVID infection this past , 4 days ago. She has symptoms starting on Tuesday myalgias, cough, sinus congestion and headache. Saw her PCP on because symptoms started on Tuesday diagnosed with sinusitis and left ear infection. She was put on Augmentin. However since then has had nausea and vomiting and unable keep pills or fluids down. She was written for Phenergan for which she took still nauseated currently. Tried drinking water day and had vomiting. Pain across the upper abdomen. No bowel movement for 2 days. Positive flatus. History of irritable bowel disease with more constipation. No urinary symptoms. [facility] Medical History ASCUS of cervix with negative high risk HPV PCOS (polycystic ovarian syndrome) Ovarian cyst Home Medications ?Medication ?Instructions ?Recorded ?Last Taken ?Type cholecalciferol (vitamin D3) 25 2,000 unit PO DAILY 04/09/15 Unknown History mcg (1,000 unit) tablet fluticasone propionate 50 2 spray intranasal DAILY 07/17/19 Unknown History mcg/actuation nasal spray,suspension (Flonase Allergy Relief) dicyclomine 10 mg capsule 10 mg PO BID 05/20/20 Unknown History magnesium citrate 100 mg capsule 100 mg PO DAILY 05/20/20 Unknown History omeprazole 20 mg capsule,delayed 20 mg PO BID 05/20/20 Unknown History release sertraline 50 mg tablet (Zoloft) 50 mg PO DAILY 05/20/20 Unknown History levocetirizine 5 mg tablet (Xyzal) 5 mg PO DAILY 07/28/21 Unknown History montelukast 10 mg tablet 10 mg PO DAILY 07/28/21 Unknown History (Singulair) rosuvastatin 10 mg tablet 10 mg PO DAILY 08/09/22 Unknown History vitamin#30 30 mg iron-10 cap PO 08/15/23 Unknown History mg iron-folic acid 1 mg-omg3 capsule metoclopramide HCl 5 mg tablet 5 mg PO Q8H PRN PRN nausea and 12/23/23 Unknown Rx (Reglan) vomiting 3 days #9 tabs promethazine 25 mg tablet 25 mg PO Q6H PRN PRN Nausea #10 01/14/24 Unknown Rx TABLETS ondansetron 4 mg disintegrating 4 mg PO Q8H PRN PRN Nausea #10 tabs 01/16/24 Unknown Rx tablet Allergy/AdvReac Type Severity Reaction Status Date / Time sucralfate (From Carafate) Allergy Intermediate Nausea/Vom/ Verified 01/16/24 12:32 Diarrhea Family History Father Myocardial infarction Mother Multiple sclerosis Grandmother Diabetes Surgical History S/P pilonidal cyst excision [place] teeth extracted Social History current occupational status: employed 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 [facility] ROS ROS ED Constitutional Constitutional ED: Denies chills, fever(s) or sweats Eyes Eyes: Denies change in vision ENT ENT ED: Denies dysphagia or sore throat Cardiovascular Cardiovascular: Denies chest pain, leg edema, palpitations or racing heartbeat Respiratory/Chest Respiratory/Chest: Denies cough, dyspnea or dyspnea on exertion Gastrointestinal Gastrointestinal: Reports abdominal pain, constipation, nausea and vomiting; Denies diarrhea Genitourinary Genitourinary ED: Denies dysuria, hematuria or urinary frequency Musculoskeletal Musculoskeletal: Denies back pain, extremity pain or neck pain Integumentary Denies rash or wounds Neurologic Neurologic: Denies headache(s), paresthesias or weakness EXAM Physical Exam Const Vital Signs: 01/16/24 12:29 01/16/24 12:32 Temperature 98 F 97.6 F L Temperature Source Oral Temporal Pulse Rate 102 H 78 Respiratory Rate 18 16 Blood Pressure 131/101 H 130/98 H Blood Pressure Mean 111 108 Pulse Ox 98 98 Oxygen Delivery Method Room Air Room Air Positive well nourished and well developed General Appearance ED: well developed and NAD HEENT Reports TM's clear and moist mucous membranes HEENT Narrative: Normal TMs bilaterally no posterior pharyngeal erythema. normocephalic and atraumatic Tympanic Membrane ED: Yes TM's clear Eyes EOMs intact bilaterally and conjunctivae normal General Eye ED: Yes normal appearance of both eyes Neck no lymphadenopathy and supple General: Negative for tenderness Chest Wall Chest: Negative for tenderness Resp normal respiratory effort and normal air movement Effort and Inspection: symmetric chest movement; Negative for respiratory distress Cardio regular rate, regular rhythm and no murmurs Peripheral Pulses: pulses 2+ throughout GI normal to inspection, nondistended, normoactive bowel sounds GI Narrative: Minimal tenderness epigastric negative Medley's or McBurney's tenderness. Palpation: Negative for guarding or rebound tenderness present Back/Spine no CVA tenderness and no thoracic nor lumbar tenderness Extremity normal to inspection General Extremety ED: Negative for edema or tenderness General Extremity: Negative for edema Neuro oriented x3 and no sensory deficits noted Sensorium / Orientation: awake and alert Skin no rashes or lesions noted and no wounds MDM MDM MDM Narrative Medical decision making narrative: Interventions / MDM: Differential diagnosis: Transaminitis, dehydration, nausea and vomiting, COVID-19 infection Diagnosis considered but do not suspect: Pancreatitis however lipase normal. Cholecystitis however ultrasound negative. My EKG interpretation: N/A Imaging independently reviewed and interpreted by myself: Right upper quadrant ultrasound: Fatty liver, normal gallbladder. KUB: Diffuse burden however more in the right side on my review. Also read by radiology. External documents reviewed: N/A Test considered but not ordered:N/A ED course: Patient labs drawn from triage. She has not surgical abdomen. Her urine noted ketones and blood. IV established for IV fluids for her nausea and vomiting. She treated IV Zofran. Abdominal labs no normal white count 9.1 hemoglobin 14.6. Creatinine 0.69 BUN of 6. Slight transaminitis with AST of 83 ALT of 201. Bili normal at 0.7. Lipase added normal at 41. Recent evaluated labs she has had slight transaminitis as for her back in 2020. This been no ultrasound. Therefore ultrasound ordered. With constipation concern KUB ordered. Ultrasound fatty liver normal gallbladder. KUB with stool burden on the right side on my review. Discussed with her that likely benefit from any enemas that time. Discussed increasing her p.o. fluids as dehydration can lead to more constipation symptoms. Abdominal pain discussed gastritis symptoms she is on omeprazole 20 mg she will increase this to 40 mg daily for the next 2 weeks. She is given GI for follow-up with her reported irritable bowel disease history. She tolerant oral fluids reevaluation. Prescription Zofran sent to her pharmacy. Urine noted bacteria and red blood cells. No flank pain no bladder pain for concerns for kidney stones. She is asymptomatic on the urine. Outpatient follow-up with return precautions. All questions were answered. Re-evaluation: stable Disposition discussed with patient/family/significant other: Patient Case discussed with consulting clinician: N/A This note was generated with Switchboard dictation software. It may contain incorrect words, spelling, and punctuation that were not noted in checking the note before signing. Lab Data Labs: Laboratory Results - last 24 hr 01/16/24 01/16/24 12:35 12:40 WBC 9.1 RBC 4.86 Hgb 14.6 Hct 44.3 MCV 91.2 MCH 30.0 MCHC 33.0 RDW Std Deviation 43.7 RDW Coeff of Lynn 13.2 Plt Count 373 MPV 11.6 Immature Gran % (Auto) 0.200 Neut % (Auto) 75.4 H Lymph % (Auto) 20.6 Custer % (Auto) 3.3 Eos % (Auto) 0.3 Baso % (Auto) 0.2 Absolute Neuts (auto) 6.8 Absolute Lymphs (auto) 1.87 Nucleated RBC % 0 Sodium 141 Potassium 3.6 Chloride 109 H Carbon Dioxide 24.0 Anion Gap 8 BUN 6 L Creatinine 0.69 Estim Creat Clear Calc 144.40 Est GFR (MDRD) Af Amer 127 Est GFR (MDRD) Non-Af 105 BUN/Creatinine Ratio 8.7 L Glucose 94 Calcium 9.3 Total Bilirubin 0.70 AST 83 H ALT 201 H Alkaline Phosphatase 148 H Total Protein 7.6 Albumin 3.9 Globulin 3.7 Albumin/Globulin Ratio 1.1 Lipase 41 Serum , Qual NEGATIVE Urine Color Yellow Urine Clarity Sl. Cloudy Urine pH 7.0 Ur Specific [place] 1.010 Urine Protein 30 H Urine Glucose (UA) Normal Urine Ketones 150 A* Urine Occult Blood 250 H Urine Nitrite Negative Urine Bilirubin Negative Urine Urobilinogen 4 H Ur Leukocyte Esterase 25 H Urine RBC > 100 SEEN Urine WBC 10-25 SEEN Ur Squamous Epith Cells 10-25 SEEN Urine Bacteria 2+ Urine Mucus 0 SEEN Radiography Diagnostic Testing: Clinical Impression(s) from Imaging Studies Gallbladder Ultrasound 01/16/24 14:11 IMPRESSION: Mild hepatomegaly. Fatty infiltration of the liver. Electronically Signed: Myron Gaona MD at 14:52 EST , KUB X-Ray 01/16/24 15:25 IMPRESSION: Non-obstructive bowel gas pattern. Mild diffuse colonic stool burden. Electronically Signed: Blaine Mann MD at 15:40 EST , Discharge Plan Triage Chief Complaint: Abd Pain ED Provider: Jens Ochoa Dx/Rx/DC Orders Clinical Impression: Gastritis, Transaminitis, Fatty liver Instructions: ED Gastritis (Adult) Prescriptions: New ondansetron 4 mg tablet,disintegrating 4 mg PO Q8H PRN PRN (Reason: Nausea) Qty: 10 0RF No Action fluticasone propionate [Flonase Allergy Relief] 50 mcg/actuation spray,suspension 2 spray INTRANASAL DAILY Rx Instructions: administer into each nostril omeprazole 20 mg capsule,delayed release(DR/EC) 20 mg PO BID sertraline [Zoloft] 50 mg tablet 50 mg PO DAILY dicyclomine 10 mg capsule 10 mg PO BID magnesium citrate 100 mg capsule 100 mg PO DAILY levocetirizine [Xyzal] 5 mg tablet 5 mg PO DAILY montelukast [Singulair] 10 mg tablet 10 mg PO DAILY rosuvastatin 10 mg tablet 10 mg PO DAILY PNV #[id number] 30 mg iron-10 mg iron-1 mg capsule PO cholecalciferol (vitamin D3) 1,000 UNIT tablet 2,000 unit PO DAILY metoclopramide HCl [Reglan] 5 mg tablet 5 mg PO Q8H PRN PRN (Reason: nausea and vomiting) 3 Days Qty: 9 0RF promethazine 25 mg tablet 25 mg PO Q6H PRN PRN (Reason: Nausea) Qty: 10 0RF Stand Alone Forms: ED Work / School Excuse Primary Care Provider: Heath Ontiveros Referrals: Heath Ontiveros DO [Primary Care Provider] - 1 Week Friend,DO Dariel [Med Staff - Active Staff] - 1-2 Weeks Activity Restrictions/Additional Instructions: Increase your omeprazole to 2 tabs daily. Continue oral fluids for hydration. Zofran as needed. Follow-up with GI Dr. Friend with your symptoms along with your history of irritable bowel disease diagnosed by your doctor. Print Language: Thai Disposition Disposition: Home, Self Care Discharge Date/Time: 01/16/24 16:35
--- NOTE | 2024-01-16 15:25 | RAD_ITS ---
INDICATION: constipation EXAMINATION/TECHNIQUE: X-RAY - XR Abdomen 1 View COMPARISON: Prior study dated: CT from 11/27/2019 FINDINGS: BOWEL GAS PATTERN: Non-obstructive. No bowel or stomach distention. Mild diffuse colonic stool burden. FREE AIR: Not assessed on a single supine view. ORGANOMEGALY: Not seen. CALCIFICATIONS: No abnormal calcifications observed. LOWER CHEST: No acute pathology. BONES AND SOFT TISSUES: No acute pathology. RAD/Abdomen Single View (Portable) IMPRESSION: Non-obstructive bowel gas pattern. Mild diffuse colonic stool burden. Electronically Signed: Blaine Mann MD at 15:40 EST ,
[2024-01-16 16:35] VITALS: BP 130/98; PULSE 78; RESP 16; TEMP 36.4; O2SAT 98
== END 2024-01-16 16:35 | disposition home or self-care (01) ==
PROVIDERS: Emergency Provider Emergency Medicine; PCP Student in an Organized Health Care Education/Training Program; Visit Provider Emergency Medicine
DX: K29.70 Gastritis, unspecified, without bleeding (principal); K76.0 Fatty (change of) liver, not elsewhere classified; R74.01 Elevation of levels of liver transaminase levels
CPT/HCPCS: 74018; 76705; 80053; 81001; 83690; 84703; 85025; 96361; 96374; 96375; 99283; A4216; J2405

== ENCOUNTER → 2024-03-15 | Outpatient (CLI) | payer OTHER, SELFPAY ==
--- NOTE | 2024-03-15 15:19 | US_ITS ---
PROCEDURE: PELVIC W/ TRANSVAGINAL REASON FOR EXAM: Sharp pains. TECHNIQUE: Transabdominal and transvaginal pelvic ultrasound COMPARISON: None. FINDINGS: Measurements: Uterus: 7.9 cm x 4.8 cm x 3.7 cm. Endometrial Thickness: 4 mm Right Ovary: 3.7 cm x 2.9 cm x 1.5 cm. Left Ovary: 3.9 cm x 2.8 cm x 2.0 cm. Uterus: Normal size, myometrial echotexture, and contour. Anteverted. The endocervical canal is heterogeneous with some echogenic foci. Endometrium: Heterogeneous cystic areas. Right ovary: Normal size and echotexture. Left ovary: Normal size and echotexture. No large pelvic mass identified. US/Pelvic w/ Transvaginal IMPRESSION: Heterogeneous cystic endometrium/endocervical canal. The differential includes submucosal fibroid, polyp, endometrial hyperplasia and endometrial carcinoma. Further evaluation with sonohysterogram , biopsy or hysteroscopy is suggested as clinically indicated. Correlation with CT may be of benefit to exclude gas. Reading Location: [id number]
== END | disposition home or self-care (01) ==
PROVIDERS: PCP Student in an Organized Health Care Education/Training Program; Referring Provider Nurse Practitioner Women's Health; Visit Provider Nurse Practitioner Women's Health
DX: R10.2 Pelvic and perineal pain (principal)
CPT/HCPCS: 76830; 76856

== ENCOUNTER → 2024-04-03 | Outpatient (CLI) | payer OTHER, SELFPAY ==
--- NOTE | 2024-04-03 | EMB_PTH ---
PATIENT: ELEAZAR BOLDEN LOC: [facility] U#:[id number] AGE/SX: 34/F ROOM: RE04/03/[address]: TED Barnes : 1990 BED: DIS: 04/03/2024 SPEC #: [id number] RECD: 04/03/24 16:42 STATUS: SEAN RELouie #: [id number] SHAUNA: 04/03/24 00:[address]: Miriam Dubois NP DEPT: SURGICAL PATHOLOGY RECD BY: Luis Fernando Tay ENTERED: 04/04/24 09:43 SP TYPE: ENDOM BX/C DANII DR: Dr. Heath Ontiveros DO Tissues: Endometrium, NOS Procedures: Surgery Specimen Level IV HEADER OPERATION: Endometrial biopsy PRE-OP DIAGNOSIS: Abnormal uterine bleeding TISSUE SUBMITTED: Endometrial lining MICROSCOPIC DIAGNOSIS Endometrial biopsy: Secretory endometrium. 04/05/2024 MICROSCOPIC DESCRIPTION Slides are reviewed. GROSS DESCRIPTION Received is one container labeled with the patient's name and not further designated. The specimen consists of multiple irregular fragments of pink soft tissue that in aggregate measure 5 x 3 x 0.2 cm. The specimen is totally submitted in two cassettes. 04/04/2024 TC:4 CPT:73049
[2024-04-08 11:07] LABS: HPV APTIMA, High Risk Negative (Negative)
== END | disposition home or self-care (01) ==
LOC: LABSPEC 16:19
PROVIDERS: PCP Student in an Organized Health Care Education/Training Program; Referring Provider Nurse Practitioner Women's Health; Visit Provider Nurse Practitioner Women's Health
DX: Z12.4 Encounter for screening for malignant neoplasm of cervix (principal); R87.610 Atypical squamous cells of undetermined significance on cytologic smear of cervix (ASC-US); N93.9 Abnormal uterine and vaginal bleeding, unspecified
CPT/HCPCS: 87624; 88175; 88305; G0145

== ENCOUNTER → 2024-05-04 | Outpatient (CLI) | payer OTHER, SELFPAY ==
--- NOTE | 2024-05-04 07:49 | US_ITS ---
PROCEDURE: ABD LIMITED W/ ELASTOGRAPHY REASON FOR EXAM: 34-year-old female, follow-up hepatic steatosis. COMPARISON: Abdominal ultrasound 01/16/2024. TECHNIQUE: Right upper quadrant abdominal ultrasound. Romulo ElastQ Imaging shear wave elastography for non-invasive assessment of liver tissue stiffness. Romulo EPIQ Elite. FINDINGS: LIVER: Size: Unremarkable Length: 17.3 cm Echotexture: Diffusely echogenic suggesting fatty infiltration Contour: Normal Lesions: None identified Elastography: EQI Med: 7.1 kPa EQI Med Navarro: 1.5 m/s IQR/Med: 5-13 %* GALLBLADDER: No stones sludge wall thickening or tenderness. COMMON BILE DUCT: Normal measuring 0.6 cm. PANCREAS: Normal Visualized portions of the right kidney are unremarkable. No right upper quadrant ascites. US/ABD Limited w/ Elastography IMPRESSION: 1. Findings compatible with moderate fibrosis (Metavir score F2-3). 2. Diffuse hepatic steatosis. Reference Values: SRU <1.37 m/s (5.7kPa): No to mild fibrosis 1.37 m/s - 2.2 m/s: Moderate to severe fibrosis >2.2 m/s (15kPa): Significant fibrosis / cirrhosis METAVIR Score F2 or higher: 1.34 m/s (5.7kPa) F3 or higher: 1.55 m/s (7.3kPa) F4: 1.80 m/s (10kPa) * If the IQR/Med is >30%, the variance in the measurements is a large and the a ccuracy of the measurement may be in question. Reading Location: [id number]
== END | disposition home or self-care (01) ==
PROVIDERS: PCP Student in an Organized Health Care Education/Training Program; Referring Provider Student in an Organized Health Care Education/Training Program; Visit Provider Student in an Organized Health Care Education/Training Program
DX: K76.0 Fatty (change of) liver, not elsewhere classified (principal)
CPT/HCPCS: 76705; 76981